=== PATIENT | female | born 1950 | race Caucasian/White ===

== ENCOUNTER 2017-08-31 08:35 | Emergency (ER) | payer OTHER ==
[~2017-08-31] VITALS: Ht 160 cm; Wt 74.0 kg
[~2017-08-31 08:35] MED LIST: ALEVE220 M2 PO; AMOX TR-K CLV1 EAC4 PO; APRESOLINE100 MG PO; APRESOLINE50 MG PO; ASPIR-LOW81 MG PO; CARVEDILOL25 MG PO; CEFTIN500 MG PO; COREG25 M1 PO; CYANOCOBAL1000 MCG/2 IM; CYANOCOBALAM1000 MCG PO; DILTIAZEM 24HR180 MG PO; DILTIAZEM 24HR360 M1 PO; DILTIAZEM HCL360 MG PO; FERROUS SULFAT325 MG PO; FOLIC ACID1 MG PO; GLIPIZIDE ER2.5 MG PO; GLUCOPHAGE1000 MG PO; HYDRALAZINE HCL50 MG PO; LEVETIRACETAM500 MG PO; LEVOTHYROXINE150 MCG PO; LO-DOSE ASPIRIN81 M1 PO; METFORMIN; METFORMIN HCL1000 MG PO; NUCYNTA50 MG PO; PRAVACHOL80 MG PO; PRAVASTATIN SOD80 MG PO; RANITIDINE HCL150 MG PO; ROWEEPRA500 MG PO; Rocephin IV; SYNTHROID150 MCG PO; VITAMIN D; VITAMIN D1000 UNIT PO; VITAMIN D31000 UNIT PO; ZANTAC150 MG PO
[2017-08-31 09:08] LABS: HEMATOCRIT 29.4 % (36.0-46.0); MCHC 30.6 G/DL (30.0-36.0); MCV 91.3 FL (83-99); MEAN PLAT.VOLUME 8.4 uM^3 (9.5-12.4); PLATELET COUNT 434 K/uL (156-360); RBC DIS.WIDTH-CV 15.2 % (11.8-14.6); RBC DIS.WIDTH-SD 50.4 % (39-53); RED BLOOD COUNT 3.22 M/uL (3.80-5.20); WHITE BLOOD COUNT 4.8 K/uL (4.1-10.2)
[2017-08-31 09:25] LABS: CHLORIDE 110 mEq/L (99-109); POTASSIUM 3.9 mEq/L (3.7-5.4); SODIUM 140 mEq/L (136-147)
[2017-08-31 09:26] LABS: GLUCOSE 138 mg/dL (70-99)
[2017-08-31 09:28] LABS: ANION GAP 10 MEQ/L (2-14)
[2017-08-31 09:30] LABS: GFR ESTIMATE (CALCULATED) 25 mL/min/
[2017-08-31 09:31] LABS: UREA NITROGEN (BUN) 32 mg/dL (9-23)
[2017-08-31 09:44] LABS: INFLUENZA A VIRAL ANTIGEN NEGATIVE; INFLUENZA B VIRAL ANTIGEN NEGATIVE
[2017-08-31] MEDS ORDERED: ZITHROMAX500 MG PO (10:19)
[2017-08-31 11:03] VITALS: BP 157/75
== END 2017-08-31 11:16 | disposition home or self-care (01) ==
LOC: EME 08:35
PROVIDERS: Nurse Practitioner Family
DX: J02.9 Acute pharyngitis, unspecified (principal); R05 Cough
CPT/HCPCS: 70360; 71020; 80048; 85027; 87502; 87651 90; 99281; 99283; J1100

== ENCOUNTER 2018-07-24 12:17 | Emergency (ER) | payer OTHER ==
[~2018-07-24] VITALS: Ht 160 cm; Wt 67.1 kg
[~2018-07-24 12:17] MED LIST changes: +ZITHROMAX500 MG PO
[2018-07-24 12:46] LABS: HEMATOCRIT 30.3 % (36.0-46.0); HEMOGLOBIN 9.2 G/DL (11.9-15.5); MCH 26.2 PG (29.0-34.0); MCHC 30.4 G/DL (30.0-36.0); MCV 86.3 FL (83-99); PLATELET COUNT 404 K/uL (156-360); RBC DIS.WIDTH-CV 17.2 % (11.8-14.6); RED BLOOD COUNT 3.51 M/uL (3.80-5.20); WHITE BLOOD COUNT 3.2 K/uL (4.1-10.2)
[2018-07-24 12:59] LABS: CHLORIDE 106 mEq/L (99-109); POTASSIUM 3.9 mEq/L (3.7-5.4); SODIUM 136 mEq/L (136-147)
[2018-07-24 13:01] LABS: GLUCOSE 147 mg/dL (70-99)
[2018-07-24 13:05] LABS: CREATININE 1.9 mg/dL (0.6-1.3); GFR ESTIMATE (CALCULATED) 28 mL/min/
[2018-07-24 13:06] LABS: UREA NITROGEN (BUN) 32 mg/dL (9-23)
[2018-07-24] MEDS ORDERED: PROTONIX40 MG PO (16:23)
[2018-07-24 16:36] VITALS: BP 137/59
== END 2018-07-24 16:47 | disposition home or self-care (01) ==
LOC: EME 12:17
DX: K92.2 Gastrointestinal hemorrhage, unspecified (principal); I10 Essential (primary) hypertension; E78.5 Hyperlipidemia, unspecified; E03.9 Hypothyroidism, unspecified; Z79.82 Long term (current) use of aspirin
CPT/HCPCS: 80048; 85027; 86850; 86900; 86901; 86920; 99281; 99285